=== PATIENT | female | born 1995 | race African-American/Black ===

== ENCOUNTER 2018-11-23 18:06 | Emergency (ER) | payer MEDICAID ==
[~2018-11-23] VITALS: Ht 162.6 cm; Wt 77.3 kg
[2018-11-23] MEDS ORDERED: METR-152 PO (20:10)
[2018-11-23] MEDS ORDERED: METR500 PO (20:13)
[2018-11-23 20:25] LABS: BASOPHILS % (AUTO) 0.6 % (0.0-2.0); EOSINOPHILS % (AUTO) 0.9 % (1.0-6.0); HEMATOCRIT 39.4 % (36-46); HEMOGLOBIN 13.1 g/dL (12.0-16.0); LYMPHOCYTES # (AUTO) 2.4 K/uL (1.0-4.8); MEAN CORPUSCULAR HEMOGLOBIN 28.9 pg (26.0-34.0); MEAN CORPUSCULAR HGB CONC 33.3 G/dL (31.0-37.0); MEAN CORPUSCULAR VOLUME 87 fL (80-100); MONOCYTES # (AUTO) 0.5 K/uL (0.1-1.0); MONOCYTES % (AUTO) 6.3 % (2.0-9.0); NEUTROPHILS % (AUTO) 62.2 % (40.0-70.0); PLATELET COUNT (AUTO) 262 K/uL (150-450); RED BLOOD CELL COUNT(AUTO) 4.53 MIL/uL (4.00-5.20); RED CELL DISTRIBUTION WIDTH 15.4 % (11.5-14.5)
[2018-11-23 20:38] LABS: APPEARANCE,URINE CLEAR (CLEAR); GLUCOSE, URINE (UA) NEGATIVE (NEGATIVE); KETONES,URINE 15 mg/dL (NEGATIVE); LEUKOCYTE ESTERASE ,URINE SMALL (NEGATIVE); NITRATE,URINE POSITIVE (NEGATIVE); OCCULT BLOOD,URINE NEGATIVE (NEGATIVE); PH,URINE 6.5 (5.0-8.0); PROTEIN,URINE NEGATIVE (NEGATIVE)
[2018-11-23 20:38] LABS: ANION GAP 11 mmol/L (8-16); CARBON DIOXIDE 24 mmol/L (22-29); CHLORIDE 108 mmol/L (98-107); GLOMERULAR FILTR. RATE CALC > 60 mL/min (>60); GLUCOSE,RANDOM 91 mg/dL (70-110); POTASSIUM 3.7 mmol/L (3.5-5.1); SODIUM SERUM 143 mmol/L (136-145); UREA NITROGEN, BLOOD 11 mg/dL (7-18)
[2018-11-23 20:42] LABS: AMPHET/METH SCREEN,URINE NEGATIVE (NEGATIVE); BARBITURATE SCREEN, URINE NEGATIVE (NEGATIVE); BENZODIAZEPINES SCREEN,URINE NEGATIVE (NEGATIVE); CANNABINOID SCREEN,URINE POSITIVE (NEGATIVE); COCAINE SCREEN,URINE NEGATIVE (NEGATIVE); METHADONE SCREEN, URINE NEGATIVE (NEGATIVE); OPIATE SCREEN,URINE NEGATIVE (NEGATIVE)
[2018-11-23 20:44] LABS: BILIRUBIN,URINE PRELIM. POSITIVE (NEGATIVE); PHENCYCLIDINE SCREEN,URINE NEGATIVE (NEGATIVE)
[2018-11-23 20:52] LABS: ALANINE AMINOTRANSFERASE 42 U/L (12-78); ALBUMIN 3.3 g/dL (3.4-5.0); ALKALINE PHOSPHATASE 69 U/L (46-116); ASPARTATE AMINOTRANSFERASE 39 U/L (15-37); BILIRUBIN,TOTAL 0.3 mg/dL (0.1-1.0); HCG,QUANTITATIVE < 1 mIU/mL (0-6); TOTAL PROTEIN, SERUM 6.7 g/dL (6.4-8.2)
[2018-11-23 21:05] LABS: RBC,URINE None Seen /HPF (0-2)
[2018-11-23 21:06] LABS: BACTERIA,URINE Few /HPF (None Seen); SQUAMOUS EPITHELIAL CELL,UR Rare /LPF (None Seen)
[2018-11-23 22:01] VITALS: BP 92/54
== END 2018-11-23 22:20 | disposition home or self-care (01) ==
LOC: EMS 18:08
DX: F29 Unspecified psychosis not due to a substance or known physiological condition (principal); F31.9 Bipolar disorder, unspecified; F20.9 Schizophrenia, unspecified; Z79.899 Other long term (current) drug therapy
CPT/HCPCS: 36415; 80053; 80307; 81001; 84702; 85025; 99283; G0480

== ENCOUNTER 2019-12-20 14:28 | Emergency (ER) | payer MEDICAID ==
[~2019-12-20] VITALS: Ht 162.6 cm; Wt 76.6 kg
[~2019-12-20 14:28] MED LIST: METR500 PO
[2019-12-20] MEDS ORDERED: HALO10 PO (16:19)
[2019-12-20] MEDS ORDERED: ARIP300S3 IM (16:19)
[2019-12-20 16:58] LABS: BASOPHILS % (AUTO) 0.3 % (0.0-2.0); EOSINOPHILS % (AUTO) 0.3 % (1.0-6.0); HEMATOCRIT 44.2 % (36-46); HEMOGLOBIN 14.8 g/dL (12.0-16.0); LYMPHOCYTES # (AUTO) 1.2 K/uL (1.0-4.8); LYMPHOCYTES % (AUTO) 11.9 % (22.0-44.0); MEAN CORPUSCULAR HEMOGLOBIN 29.7 pg (26.0-34.0); MEAN CORPUSCULAR HGB CONC 33.4 G/dL (31.0-37.0); MEAN CORPUSCULAR VOLUME 89 fL (80-100); MONOCYTES # (AUTO) 0.5 K/uL (0.1-1.0); NEUTROPHILS % (AUTO) 82.5 % (40.0-70.0); PLATELET COUNT (AUTO) 242 K/uL (150-450); RED BLOOD CELL COUNT(AUTO) 4.97 MIL/uL (4.00-5.20); RED CELL DISTRIBUTION WIDTH 13.9 % (11.5-14.5)
[2019-12-20 17:02] LABS: AMPHET/METH SCREEN,URINE NEGATIVE (NEGATIVE); BARBITURATE SCREEN, URINE NEGATIVE (NEGATIVE); BENZODIAZEPINES SCREEN,URINE NEGATIVE (NEGATIVE); CANNABINOID SCREEN,URINE POSITIVE (NEGATIVE); COCAINE SCREEN,URINE NEGATIVE (NEGATIVE); METHADONE SCREEN, URINE NEGATIVE (NEGATIVE); OPIATE SCREEN,URINE NEGATIVE (NEGATIVE)
[2019-12-20 17:03] LABS: PHENCYCLIDINE SCREEN,URINE NEGATIVE (NEGATIVE)
[2019-12-20 17:11] LABS: ANION GAP 9 mmol/L (8-16); CALCIUM, TOTAL 9.3 mg/dL (8.8-10.5); CARBON DIOXIDE 25 mmol/L (22-29); CHLORIDE 107 mmol/L (98-107); CREATININE 0.66 mg/dL (0.60-1.30); GLOMERULAR FILTR. RATE CALC > 60 mL/min (>60); GLUCOSE,RANDOM 80 mg/dL (70-110); POTASSIUM 3.8 mmol/L (3.5-5.1); SODIUM SERUM 141 mmol/L (136-145); UREA NITROGEN, BLOOD 8 mg/dL (7-18)
[2019-12-20 17:16] LABS: ALANINE AMINOTRANSFERASE 15 U/L (12-78); ALBUMIN 3.9 g/dL (3.4-5.0); ALKALINE PHOSPHATASE 68 U/L (46-116); ASPARTATE AMINOTRANSFERASE 15 U/L (15-37); BILIRUBIN,TOTAL 0.3 mg/dL (0.1-1.0); TOTAL PROTEIN, SERUM 7.9 g/dL (6.4-8.2)
[2019-12-20 18:15] VITALS: BP 111/69
== END 2019-12-20 18:15 | disposition home or self-care (01) ==
LOC: EMS 14:28
DX: F32.9 Major depressive disorder, single episode, unspecified (principal); F10.129 Alcohol abuse with intoxication, unspecified; F20.9 Schizophrenia, unspecified; Y90.4 Blood alcohol level of 80-99 mg/100 ml; Z79.899 Other long term (current) drug therapy
CPT/HCPCS: 36415; 80053; 80307; 85025; 99284; G0480

== ENCOUNTER 2020-09-06 16:47 | Inpatient (IN) | payer MEDICAID ==
[~2020-09-06 16:47] MED LIST changes: +ARIP300S3 IM; +HALO10 PO; -METR500 PO
[2020-09-06] MEDS ORDERED: DIVA-80 PO (17:35)
[2020-09-06] MEDS ORDERED: OLAN10TA3 PO (17:35)
[2020-09-06] MEDS ORDERED: HALOPERIDOL 5 MG TABLET PO PRN (20:45)
[2020-09-06] MEDS ORDERED: ZOLPIDEM TARTRATE 10 MG TABLET PO PRN (20:45)
[2020-09-06 21:38] VITALS: BP 118/52
[2020-09-06 22:07] VITALS: BP 118/52
[2020-09-07 00:44] VITALS: BP 111/62
[2020-09-07] MEDS ORDERED: INFLUENZA VIRUS VACCINE QVS 2020-21 (6MO+)/PF 60 MCG/0.5 ML SYRINGE IM ONE (01:15)
[2020-09-07] MEDS ORDERED: MAGNESIUM HYDROXIDE SUSPENSION 30 ML UDCUP PO PRN (07:45)
[2020-09-07] MEDS ORDERED: MAG HYDROX/AL HYDROX/SIMETH ES 30 ML SUSPENSION UDCUP PO PRN (07:45)
[2020-09-07] MEDS ORDERED: DOCUSATE SODIUM 100 MG CAPSULE PO PRN (07:45)
[2020-09-07] MEDS ORDERED: GuaiFENesin/D-METHORPHAN [SUGAR-FREE] 200-20MG/10 ML SYRUP UDCUP PO PRN (07:45)
[2020-09-07] MEDS ORDERED: ONDANSETRON HCL 4 MG TABLET PO PRN (07:45)
[2020-09-07] MEDS ORDERED: LOPERAMIDE HCL 2 MG CAPSULE PO PRN (07:45)
[2020-09-07] MEDS ORDERED: PETROLATUM,WHITE 28 GM JELLY TP PRN (07:45)
[2020-09-07] MEDS ORDERED: CloNIDine HCL 0.1 MG TABLET PO PRN (07:45)
[2020-09-07] MEDS ORDERED: NICOTINE 14 MG/24 HOUR PATCH TD PRN (07:45)
[2020-09-07] MEDS ORDERED: ALBUTEROL SULFATE HFA 90 MCG/PUFF 8 GM INHALER IH PRN (07:45)
[2020-09-07 08:22] VITALS: BP 119/65
[2020-09-07] MEDS: OLANZapine 10 MG TABLET PO SCH ×3 (09:00→17:00)
[2020-09-07] MEDS: DIVALPROEX SODIUM 500 MG DR TABLET PO SCH ×3 (09:00→17:00)
[2020-09-07] MEDS: HALOPERIDOL LACTATE 5 MG/ML VIAL IM PRN ×2 (14:42→17:55)
[2020-09-08 01:14] VITALS: BP 115/68
[2020-09-08 08:23] VITALS: BP 124/82
[2020-09-08] MEDS: DIVALPROEX SODIUM 500 MG DR TABLET PO SCH ×2 (08:32→16:10)
[2020-09-08] MEDS: OLANZapine 10 MG TABLET PO SCH ×2 (08:32→16:10)
[2020-09-08] MEDS: HALOPERIDOL LACTATE 5 MG/ML VIAL IM PRN (08:36)
[2020-09-08 16:09] VITALS: BP 122/70
[2020-09-09] MEDS: ACETAMINOPHEN 325 MG TABLET PO PRN ×2 (00:30→14:32)
[2020-09-09 06:21] VITALS: BP 124/77
[2020-09-09 08:36] VITALS: BP 122/74
[2020-09-09] MEDS: OLANZapine 10 MG TABLET PO SCH ×2 (09:13→16:12)
[2020-09-09] MEDS: DIVALPROEX SODIUM 500 MG DR TABLET PO SCH ×2 (09:14→16:12)
[2020-09-09] MEDS: NYSTATIN 15 GM POWDER BOTTLE TP SCH ×2 (09:15→16:12)
[2020-09-09 16:13] VITALS: BP 126/78
[2020-09-10 01:17] VITALS: BP 121/76
[2020-09-10 08:08] VITALS: BP 122/73
[2020-09-10] MEDS: OLANZapine 10 MG TABLET PO SCH ×2 (08:14→17:13)
[2020-09-10] MEDS: DIVALPROEX SODIUM 500 MG DR TABLET PO SCH ×2 (08:14→17:51)
[2020-09-10] MEDS: CEPHALEXIN MONOHYDRATE 500 MG CAPSULE PO SCH ×3 (09:12→17:13)
[2020-09-10] MEDS: NYSTATIN 15 GM POWDER BOTTLE TP SCH ×2 (09:13→17:14)
[2020-09-10 16:11] VITALS: BP 117/78
[2020-09-10] MEDS: LORazepam 2 MG TABLET PO PRN (17:13)
[2020-09-11 00:45] VITALS: BP 111/67
[2020-09-11] MEDS: ACETAMINOPHEN 325 MG TABLET PO PRN ×2 (03:11→18:25)
[2020-09-11] MEDS: IBUPROFEN 400 MG TABLET PO PRN (05:26)
[2020-09-11] MEDS: NYSTATIN 15 GM POWDER BOTTLE TP SCH ×2 (08:15→16:44)
[2020-09-11] MEDS: OLANZapine 10 MG TABLET PO SCH ×2 (08:15→16:40)
[2020-09-11] MEDS: CEPHALEXIN MONOHYDRATE 500 MG CAPSULE PO SCH ×3 (08:15→16:40)
[2020-09-11] MEDS: DIVALPROEX SODIUM 500 MG DR TABLET PO SCH ×2 (08:15→16:40)
[2020-09-11 08:27] VITALS: BP 118/72
[2020-09-11 09:02] LABS: APPEARANCE,URINE CLEAR (CLEAR); BILIRUBIN,URINE NEGATIVE (NEGATIVE); GLUCOSE, URINE (UA) NEGATIVE (NEGATIVE); KETONES,URINE NEGATIVE (NEGATIVE); LEUKOCYTE ESTERASE ,URINE NEGATIVE (NEGATIVE); NITRATE,URINE NEGATIVE (NEGATIVE); OCCULT BLOOD,URINE NEGATIVE (NEGATIVE); PH,URINE 7.5 (5.0-8.0); PROTEIN,URINE NEGATIVE (NEGATIVE); UROBILINOGEN,URINE 0.2 mg/dL (<=1.0)
[2020-09-11 09:08] LABS: AMPHET/METH SCREEN,URINE NEGATIVE (NEGATIVE); BARBITURATE SCREEN, URINE NEGATIVE (NEGATIVE); BENZODIAZEPINES SCREEN,URINE NEGATIVE (NEGATIVE); CANNABINOID SCREEN,URINE NEGATIVE (NEGATIVE); COCAINE SCREEN,URINE NEGATIVE (NEGATIVE); METHADONE SCREEN, URINE NEGATIVE (NEGATIVE); OPIATE SCREEN,URINE NEGATIVE (NEGATIVE)
[2020-09-11 09:09] LABS: PHENCYCLIDINE SCREEN,URINE NEGATIVE (NEGATIVE)
[2020-09-11 11:26] LABS: BACTERIA,URINE None Seen /HPF (None Seen); RBC,URINE None Seen /HPF (0-2); SQUAMOUS EPITHELIAL CELL,UR Rare /LPF (None Seen); WBC,URINE None Seen /HPF (0-5)
[2020-09-11 20:55] VITALS: BP 120/68
[2020-09-12 01:24] VITALS: BP 110/72
[2020-09-12] MEDS: IBUPROFEN 400 MG TABLET PO PRN ×2 (05:03→17:09)
[2020-09-12 07:48] LABS: BASOPHILS % (AUTO) 0.4 % (0.0-2.0); EOSINOPHILS % (AUTO) 2.1 % (1.0-6.0); HEMATOCRIT 40.2 % (36-46); HEMOGLOBIN 13.6 g/dL (12.0-16.0); LYMPHOCYTES # (AUTO) 1.6 K/uL (1.0-4.8); LYMPHOCYTES % (AUTO) 24.8 % (22.0-44.0); MEAN CORPUSCULAR HEMOGLOBIN 30.9 pg (26.0-34.0); MEAN CORPUSCULAR HGB CONC 33.8 G/dL (31.0-37.0); MEAN CORPUSCULAR VOLUME 91 fL (80-100); MONOCYTES # (AUTO) 0.6 K/uL (0.1-1.0); MONOCYTES % (AUTO) 8.8 % (2.0-9.0); NEUTROPHILS # (AUTO) 4.1 K/uL (1.8-7.7); NEUTROPHILS % (AUTO) 63.9 % (40.0-70.0); PLATELET COUNT (AUTO) 238 K/uL (150-450); RED CELL DISTRIBUTION WIDTH 13.6 % (11.5-14.5)
[2020-09-12 08:17] VITALS: BP 100/59
[2020-09-12] MEDS: LORazepam 2 MG TABLET PO PRN (08:49)
[2020-09-12] MEDS: DIVALPROEX SODIUM 500 MG DR TABLET PO SCH ×2 (08:49→16:10)
[2020-09-12] MEDS: OLANZapine 10 MG TABLET PO SCH ×2 (08:49→16:10)
[2020-09-12] MEDS: CEPHALEXIN MONOHYDRATE 500 MG CAPSULE PO SCH ×3 (08:49→16:10)
[2020-09-12] MEDS: NYSTATIN 15 GM POWDER BOTTLE TP SCH ×2 (08:49→16:10)
[2020-09-12 16:17] VITALS: BP 119/77
[2020-09-12 17:00] VITALS: BP 114/67
[2020-09-13 00:46] VITALS: BP 110/77
[2020-09-13] MEDS: OLANZapine 10 MG TABLET PO SCH ×2 (08:16→16:50)
[2020-09-13] MEDS: NYSTATIN 15 GM POWDER BOTTLE TP SCH ×2 (08:16→16:50)
[2020-09-13] MEDS: IBUPROFEN 400 MG TABLET PO PRN (08:17)
[2020-09-13] MEDS: DIVALPROEX SODIUM 500 MG DR TABLET PO SCH ×2 (08:17→16:50)
[2020-09-13] MEDS: CEPHALEXIN MONOHYDRATE 500 MG CAPSULE PO SCH ×3 (08:17→16:50)
[2020-09-13 08:42] VITALS: BP 116/75
[2020-09-13 16:06] VITALS: BP 118/75
[2020-09-13] MEDS: ACETAMINOPHEN 325 MG TABLET PO PRN (17:14)
[2020-09-13] MEDS: LORazepam 2 MG TABLET PO PRN (23:09)
[2020-09-14 01:08] VITALS: BP 116/72
[2020-09-14] MEDS: IBUPROFEN 400 MG TABLET PO PRN (05:21)
[2020-09-14 08:07] VITALS: BP 112/65
[2020-09-14] MEDS: OLANZapine 10 MG TABLET PO SCH (08:18)
[2020-09-14] MEDS: DIVALPROEX SODIUM 500 MG DR TABLET PO SCH (08:18)
[2020-09-14] MEDS: CEPHALEXIN MONOHYDRATE 500 MG CAPSULE PO SCH ×2 (08:19→12:59)
[2020-09-14] MEDS: NYSTATIN 15 GM POWDER BOTTLE TP SCH (08:19)
[2020-09-14] MEDS ORDERED: DIVA250T4 PO (11:08)
== END 2020-09-14 13:15 | disposition home or self-care (01) | DRG 750 ==
LOC: B3A 20:37
PROVIDERS: ADMIT Psychiatry & Neurology Child & Adolescent Psychiatry; ATTEND Psychiatry & Neurology Child & Adolescent Psychiatry
DX: F25.1 Schizoaffective disorder, depressive type (principal); F22 Delusional disorders; F17.200 Nicotine dependence, unspecified, uncomplicated; I95.9 Hypotension, unspecified
CPT/HCPCS: 80307; 87491; 87591; 90686; J1630

== ENCOUNTER 2022-05-25 10:31 | Inpatient (IN) | payer MEDICAID ==
[~2022-05-25] VITALS: Ht 160 cm; Wt 70.8 kg
[~2022-05-25 10:31] MED LIST changes: -ARIP300S3 IM; +DIVA250T4 PO; -HALO10 PO; +OLAN10TA74 PO
[2022-05-25 11:35] LABS: BASOPHILS % (AUTO) 0.3 % (0.0-2.0); EOSINOPHILS % (AUTO) 0 % (1.0-6.0); HEMATOCRIT 39.8 % (36-46); HEMOGLOBIN 13.4 g/dL (12.0-16.0); LYMPHOCYTES % (AUTO) 13.9 % (22.0-44.0); MEAN CORPUSCULAR HEMOGLOBIN 29.8 pg (26.0-34.0); MEAN CORPUSCULAR HGB CONC 33.7 G/dL (31.0-37.0); MEAN CORPUSCULAR VOLUME 88 fL (80-100); MONOCYTES # (AUTO) 0.5 K/uL (0.1-1.0); MONOCYTES % (AUTO) 6.6 % (2.0-9.0); NEUTROPHILS # (AUTO) 5.8 K/uL (1.8-7.7); NEUTROPHILS % (AUTO) 79.2 % (40.0-70.0); PLATELET COUNT (AUTO) 235 K/uL (150-450); RED BLOOD CELL COUNT(AUTO) 4.52 MIL/uL (4.00-5.20); RED CELL DISTRIBUTION WIDTH 13.5 % (11.5-14.5)
[2022-05-25] MEDS ORDERED: HALOPERIDOL 5 MG TABLET PO ONE (11:45)
[2022-05-25] MEDS ORDERED: DiphenhydrAMINE HCL 25 MG CAPSULE PO ONE (11:45)
[2022-05-25 11:59] LABS: ANION GAP 17 mmol/L (8-16); CALCIUM, TOTAL 9.6 mg/dL (8.8-10.5); CARBON DIOXIDE 21 mmol/L (22-29); CHLORIDE 100 mmol/L (98-107); CREATININE 0.61 mg/dL (0.60-1.30); GLUCOSE,RANDOM 54 mg/dL (70-110); POTASSIUM 3.7 mmol/L (3.5-5.1); SODIUM SERUM 138 mmol/L (136-145); UREA NITROGEN, BLOOD 6 mg/dL (7-18)
[2022-05-25 12:00] LABS: GLOMERULAR FILTR. RATE CALC > 60 mL/min (>60)
[2022-05-25 12:03] LABS: ALANINE AMINOTRANSFERASE 59 U/L (12-78); ALBUMIN 4.3 g/dL (3.4-5.0); ALKALINE PHOSPHATASE 66 U/L (46-116); ASPARTATE AMINOTRANSFERASE 50 U/L (15-37); BILIRUBIN,TOTAL 1.3 mg/dL (0.1-1.0); HCG,QUANTITATIVE < 1 mIU/mL (0-6); TOTAL PROTEIN, SERUM 8.1 g/dL (6.4-8.2); VALPROIC ACID < 3 mcg/mL (50-100)
[2022-05-25] MEDS ORDERED: DiphenhydrAMINE HCL 50 MG/ML VIAL ONE (12:09)
[2022-05-25] MEDS ORDERED: HALOPERIDOL LACTATE 5 MG/ML VIAL ONE (12:09)
[2022-05-25] MEDS ORDERED: DiphenhydrAMINE HCL 50 MG/ML VIAL IM ONE ×2 (12:15→18:15)
[2022-05-25] MEDS ORDERED: HALOPERIDOL LACTATE 5 MG/ML VIAL IM ONE ×2 (12:15→18:15)
[2022-05-25 12:39] LABS: COVID AG,FIA SOURCE NASOPHARYNGEAL
[2022-05-25 12:56] LABS: AMPHET/METH SCREEN,URINE NEGATIVE (NEGATIVE); BARBITURATE SCREEN, URINE NEGATIVE (NEGATIVE); BENZODIAZEPINES SCREEN,URINE NEGATIVE (NEGATIVE); CANNABINOID SCREEN,URINE NEGATIVE (NEGATIVE); COCAINE SCREEN,URINE NEGATIVE (NEGATIVE); METHADONE SCREEN, URINE NEGATIVE (NEGATIVE); OPIATE SCREEN,URINE NEGATIVE (NEGATIVE)
[2022-05-25 13:04] LABS: PHENCYCLIDINE SCREEN,URINE NEGATIVE (NEGATIVE)
[2022-05-25] MEDS ORDERED: HALOPERIDOL 5 MG TABLET PO PRN (14:00)
[2022-05-25] MEDS ORDERED: ZOLPIDEM TARTRATE 10 MG TABLET PO PRN (14:00)
[2022-05-25] MEDS ORDERED: LORazepam 2 MG TABLET PO PRN (14:00)
[2022-05-25] MEDS: ZIPRASIDONE MESYLATE 20 MG/VIAL IM ONE ×2 (15:38→17:12)
[2022-05-25] MEDS ORDERED: DIAZEPAM 5 MG/ML 2 ML SYRINGE ONE (18:12)
[2022-05-25] MEDS ORDERED: DIAZEPAM 5 MG/ML 2 ML SYRINGE IM ONE (18:15)
[2022-05-27] MEDS ORDERED: BACITRACIN 28 GM OINTMENT TP PRN (07:45)
[2022-05-27] MEDS ORDERED: ONDANSETRON HCL 4 MG TABLET PO PRN (07:45)
[2022-05-27] MEDS ORDERED: IBUPROFEN 600 MG TABLET PO PRN (07:45)
[2022-05-27] MEDS ORDERED: MAGNESIUM HYDROXIDE SUSPENSION 30 ML UDCUP PO PRN (07:45)
[2022-05-27] MEDS ORDERED: OMEPRAZOLE 20 MG CAPSULE PO PRN (07:45)
[2022-05-27] MEDS ORDERED: DOCUSATE SODIUM 100 MG CAPSULE PO PRN (07:45)
[2022-05-27] MEDS ORDERED: ACETAMINOPHEN 325 MG TABLET PO PRN (07:45)
[2022-05-27] MEDS ORDERED: ALBUTEROL SULFATE HFA 90 MCG/PUFF 8 GM INHALER IH PRN (07:45)
[2022-05-27] MEDS ORDERED: LOPERAMIDE HCL 2 MG CAPSULE PO PRN (07:45)
[2022-05-27] MEDS ORDERED: MAG HYDROX/AL HYDROX/SIMETH ES 30 ML SUSPENSION UDCUP PO PRN (07:45)
[2022-05-27] MEDS ORDERED: BENZOCAINE/MENTHOL LOZENGE PO PRN (07:45)
[2022-05-27] MEDS ORDERED: PETROLATUM,WHITE 28 GM JELLY TP PRN (07:45)
[2022-05-27] MEDS ORDERED: CloNIDine HCL 0.1 MG TABLET PO PRN (07:45)
[2022-05-27 12:27] VITALS: BP 131/69
[2022-05-27] MEDS: DIVALPROEX SODIUM 500 MG DR TABLET PO SCH (16:41)
[2022-05-27 20:29] VITALS: BP 123/69
[2022-05-27] MEDS: OLANZapine 7.5 MG TABLET PO SCH (20:29)
[2022-05-28 08:02] LABS: APPEARANCE,URINE CLEAR (CLEAR); BILIRUBIN,URINE NEGATIVE (NEGATIVE); GLUCOSE, URINE (UA) NEGATIVE (NEGATIVE); KETONES,URINE NEGATIVE (NEGATIVE); LEUKOCYTE ESTERASE ,URINE NEGATIVE (NEGATIVE); NITRATE,URINE NEGATIVE (NEGATIVE); OCCULT BLOOD,URINE NEGATIVE (NEGATIVE); PROTEIN,URINE NEGATIVE (NEGATIVE); SPECIFIC GRAVITIY, URINE 1.003 (1.003-1.030); UROBILINOGEN,URINE <=1.0 mg/dL (<=1.0)
[2022-05-28 08:08] LABS: AMPHET/METH SCREEN,URINE NEGATIVE (NEGATIVE); BARBITURATE SCREEN, URINE NEGATIVE (NEGATIVE); BENZODIAZEPINES SCREEN,URINE NEGATIVE (NEGATIVE); CANNABINOID SCREEN,URINE NEGATIVE (NEGATIVE); COCAINE SCREEN,URINE NEGATIVE (NEGATIVE); METHADONE SCREEN, URINE NEGATIVE (NEGATIVE); OPIATE SCREEN,URINE NEGATIVE (NEGATIVE)
[2022-05-28 08:09] LABS: PHENCYCLIDINE SCREEN,URINE NEGATIVE (NEGATIVE)
[2022-05-28 08:50] VITALS: BP 108/68
[2022-05-28] MEDS: DIVALPROEX SODIUM 500 MG DR TABLET PO SCH ×2 (09:39→17:07)
[2022-05-28] MEDS: OLANZapine 7.5 MG TABLET PO SCH (20:03)
[2022-05-28 20:27] VITALS: BP 122/69
[2022-05-29] MEDS: DIVALPROEX SODIUM 500 MG DR TABLET PO SCH (08:13)
[2022-05-29 08:35] VITALS: BP 106/67
[2022-05-29] MEDS ORDERED: OLAN7.5T22 PO ×2 (11:39→13:03)
[2022-05-29] MEDS ORDERED: DIVA250T4 PO (13:03)
== END 2022-05-29 14:45 | disposition home or self-care (01) | DRG 750 ==
LOC: EMS 10:32 → B2S 05-27 04:35
PROVIDERS: ADMIT Psychiatry & Neurology Psychiatry; ATTEND Psychiatry & Neurology Psychiatry
DX: F25.0 Schizoaffective disorder, bipolar type (principal); F41.9 Anxiety disorder, unspecified; G47.00 Insomnia, unspecified; Z20.822 Contact with and (suspected) exposure to COVID-19; K21.9 Gastro-esophageal reflux disease without esophagitis; Z79.899 Other long term (current) drug therapy; Z56.0 Unemployment, unspecified; Z78.1 Physical restraint status
CPT/HCPCS: 80053; 80164; 80307; 81003; 84702; 85025; 99291; G0480; J1200; J1630; J3486

== ENCOUNTER 2022-08-27 19:29 | Inpatient (IN) | payer MEDICAID ==
[~2022-08-27] VITALS: Ht 162.6 cm; Wt 71.7 kg
[~2022-08-27 19:29] MED LIST changes: -OLAN10TA74 PO; +OLAN7.5T22 PO
[2022-08-27 20:13] LABS: BASOPHILS % (AUTO) 0.4 % (0.0-2.0); EOSINOPHILS % (AUTO) 0.6 % (1.0-6.0); HEMATOCRIT 36.8 % (36-46); HEMOGLOBIN 12.3 g/dL (12.0-16.0); LYMPHOCYTES # (AUTO) 1.7 K/uL (1.0-4.8); LYMPHOCYTES % (AUTO) 25.9 % (22.0-44.0); MEAN CORPUSCULAR HEMOGLOBIN 31.2 pg (26.0-34.0); MEAN CORPUSCULAR HGB CONC 33.4 G/dL (31.0-37.0); MEAN CORPUSCULAR VOLUME 93 fL (80-100); MONOCYTES # (AUTO) 0.6 K/uL (0.1-1.0); MONOCYTES % (AUTO) 9.6 % (2.0-9.0); NEUTROPHILS # (AUTO) 4.1 K/uL (1.8-7.7); NEUTROPHILS % (AUTO) 63.5 % (40.0-70.0); PLATELET COUNT (AUTO) 177 K/uL (150-450); RED BLOOD CELL COUNT(AUTO) 3.94 MIL/uL (4.00-5.20); RED CELL DISTRIBUTION WIDTH 14.5 % (11.5-14.5)
[2022-08-27 20:21] LABS: ANION GAP 6 mmol/L (8-16); CARBON DIOXIDE 27 mmol/L (22-29); CHLORIDE 106 mmol/L (98-107); CREATININE 0.67 mg/dL (0.60-1.30); GLUCOSE,RANDOM 95 mg/dL (70-110); POTASSIUM 3.4 mmol/L (3.5-5.1); SODIUM SERUM 139 mmol/L (136-145); UREA NITROGEN, BLOOD 4 mg/dL (7-18)
[2022-08-27 20:22] LABS: AMPHET/METH SCREEN,URINE NEGATIVE (NEGATIVE); BARBITURATE SCREEN, URINE NEGATIVE (NEGATIVE); BENZODIAZEPINES SCREEN,URINE NEGATIVE (NEGATIVE); CANNABINOID SCREEN,URINE NEGATIVE (NEGATIVE); COCAINE SCREEN,URINE NEGATIVE (NEGATIVE); METHADONE SCREEN, URINE NEGATIVE (NEGATIVE); OPIATE SCREEN,URINE NEGATIVE (NEGATIVE)
[2022-08-27 20:23] LABS: GLOMERULAR FILTR. RATE CALC > 60 mL/min (>60)
[2022-08-27 20:25] LABS: PHENCYCLIDINE SCREEN,URINE NEGATIVE (NEGATIVE)
[2022-08-27 20:32] LABS: ALANINE AMINOTRANSFERASE 25 U/L (12-78); ALBUMIN 3.6 g/dL (3.4-5.0); ALKALINE PHOSPHATASE 41 U/L (46-116); ASPARTATE AMINOTRANSFERASE 18 U/L (15-37); BILIRUBIN,TOTAL 0.4 mg/dL (0.1-1.0); HCG,QUANTITATIVE < 1 mIU/mL (0-6); TOTAL PROTEIN, SERUM 6.7 g/dL (6.4-8.2)
[2022-08-27 20:33] LABS: ACETAMINOPHEN < 2 mcg/mL (10-30)
[2022-08-27 20:38] LABS: SALICYLATE 0.3 mg/dL (2.8-20.0)
[2022-08-27] MEDS ORDERED: ARIP2TAB27 PO (21:27)
[2022-08-27 21:35] LABS: COVID AG,FIA SOURCE NASOPHARYNGEAL
[2022-08-27] MEDS ORDERED: ZOLPIDEM TARTRATE 10 MG TABLET PO PRN (22:45)
[2022-08-27 22:50] LABS: APPEARANCE,URINE CLEAR (CLEAR); BILIRUBIN,URINE NEGATIVE (NEGATIVE); GLUCOSE, URINE (UA) NEGATIVE (NEGATIVE); KETONES,URINE NEGATIVE (NEGATIVE); LEUKOCYTE ESTERASE ,URINE NEGATIVE (NEGATIVE); NITRATE,URINE NEGATIVE (NEGATIVE); OCCULT BLOOD,URINE NEGATIVE (NEGATIVE); PROTEIN,URINE NEGATIVE (NEGATIVE); SPECIFIC GRAVITIY, URINE 1.004 (1.003-1.030); UROBILINOGEN,URINE <=1.0 mg/dL (<=1.0)
[2022-08-28 01:09] VITALS: BP 110/70
[2022-08-28 08:30] VITALS: BP 91/60
[2022-08-28] MEDS: ARIPiprazole 5 MG TABLET PO SCH (12:55)
[2022-08-28] MEDS ORDERED: FLUCONAZOLE 150 MG TABLET PO ONE (15:30)
[2022-08-28 15:59] LABS: APPEARANCE,URINE HAZY (CLEAR); BILIRUBIN,URINE NEGATIVE (NEGATIVE); GLUCOSE, URINE (UA) NEGATIVE (NEGATIVE); KETONES,URINE NEGATIVE (NEGATIVE); LEUKOCYTE ESTERASE ,URINE TRACE (NEGATIVE); NITRATE,URINE NEGATIVE (NEGATIVE); OCCULT BLOOD,URINE NEGATIVE (NEGATIVE); PH,URINE 7.5 (5.0-8.0); PROTEIN,URINE NEGATIVE (NEGATIVE); SPECIFIC GRAVITIY, URINE 1.021 (1.003-1.030); UROBILINOGEN,URINE <=1.0 mg/dL (<=1.0)
[2022-08-28 16:00] VITALS: BP 100/60
[2022-08-28] MEDS ORDERED: MAG HYDROX/AL HYDROX/SIMETH ES 30 ML SUSPENSION UDCUP PO PRN (16:00)
[2022-08-28] MEDS ORDERED: ONDANSETRON HCL 4 MG TABLET PO PRN (16:00)
[2022-08-28] MEDS ORDERED: ACETAMINOPHEN 325 MG TABLET PO PRN (16:00)
[2022-08-28] MEDS ORDERED: DOCUSATE SODIUM 100 MG CAPSULE PO PRN (16:00)
[2022-08-28] MEDS ORDERED: MAGNESIUM HYDROXIDE SUSPENSION 30 ML UDCUP PO PRN (16:00)
[2022-08-28] MEDS ORDERED: ALBUTEROL SULFATE HFA 90 MCG/PUFF 8 GM INHALER IH PRN (16:00)
[2022-08-28] MEDS ORDERED: NICOTINE 14 MG/24 HOUR PATCH TD PRN (16:00)
[2022-08-28] MEDS ORDERED: IBUPROFEN 400 MG TABLET PO PRN (16:00)
[2022-08-28] MEDS ORDERED: CloNIDine HCL 0.1 MG TABLET PO PRN (16:00)
[2022-08-28] MEDS ORDERED: PETROLATUM,WHITE 28 GM JELLY TP PRN (16:00)
[2022-08-28] MEDS ORDERED: LOPERAMIDE HCL 2 MG CAPSULE PO PRN (16:00)
[2022-08-28] MEDS ORDERED: GuaiFENesin/D-METHORPHAN [SUGAR-FREE] 200-20MG/10 ML SYRUP UDCUP PO PRN (16:00)
[2022-08-28] MEDS: DIVALPROEX SODIUM 500 MG DR TABLET PO SCH (16:42)
[2022-08-28 16:54] LABS: SQUAMOUS EPITHELIAL CELL,UR Few /LPF (None Seen)
[2022-08-28 16:57] LABS: BACTERIA,URINE Moderate /HPF (None Seen); RBC,URINE None Seen /HPF (0-2); WBC,URINE 0-2 /HPF (0-5)
[2022-08-28] MEDS: OLANZapine 7.5 MG TABLET PO SCH (21:09)
[2022-08-29 08:21] VITALS: BP 97/52
[2022-08-29] MEDS: DIVALPROEX SODIUM 500 MG DR TABLET PO SCH ×2 (08:31→16:23)
[2022-08-29] MEDS: ARIPiprazole 5 MG TABLET PO SCH (08:31)
[2022-08-29] MEDS: CEPHALEXIN MONOHYDRATE 250 MG CAPSULE PO SCH ×3 (08:32→16:23)
[2022-08-29 10:11] LABS: ANION GAP 5 mmol/L (8-16); CALCIUM, TOTAL 8.7 mg/dL (8.8-10.5); CARBON DIOXIDE 29 mmol/L (22-29); CHLORIDE 105 mmol/L (98-107); CREATININE 0.63 mg/dL (0.60-1.30); GLUCOSE,RANDOM 88 mg/dL (70-110); POTASSIUM 4.1 mmol/L (3.5-5.1); SODIUM SERUM 139 mmol/L (136-145); UREA NITROGEN, BLOOD 11 mg/dL (7-18)
[2022-08-29 10:13] LABS: GLOMERULAR FILTR. RATE CALC > 60 mL/min (>60)
[2022-08-29 16:03] VITALS: BP 102/61
[2022-08-29] MEDS: OLANZapine 7.5 MG TABLET PO SCH (20:39)
[2022-08-30] MEDS: CEPHALEXIN MONOHYDRATE 250 MG CAPSULE PO SCH ×3 (08:20→16:07)
[2022-08-30] MEDS: DIVALPROEX SODIUM 500 MG DR TABLET PO SCH ×2 (08:20→16:07)
[2022-08-30] MEDS: ARIPiprazole 5 MG TABLET PO SCH (08:21)
[2022-08-30] MEDS ORDERED: ARIP20TA21 PO (11:50)
[2022-08-30] MEDS ORDERED: DIVA-80 PO (11:50)
[2022-08-30 16:06] VITALS: BP 102/81
[2022-08-30] MEDS: OLANZapine 7.5 MG TABLET PO SCH (20:51)
[2022-08-31] MEDS: ARIPiprazole 5 MG TABLET PO SCH (08:30)
[2022-08-31] MEDS: CEPHALEXIN MONOHYDRATE 250 MG CAPSULE PO SCH ×3 (08:30→16:38)
[2022-08-31] MEDS: DIVALPROEX SODIUM 500 MG DR TABLET PO SCH ×2 (08:30→16:38)
[2022-08-31 08:50] VITALS: BP 117/64
[2022-08-31 16:05] VITALS: BP 117/62
[2022-08-31 16:06] VITALS: BP 117/62
[2022-08-31] MEDS: OLANZapine 7.5 MG TABLET PO SCH (20:23)
[2022-09-01 08:53] VITALS: BP 107/60
[2022-09-01] MEDS: ARIPiprazole 5 MG TABLET PO SCH (10:21)
[2022-09-01] MEDS: DIVALPROEX SODIUM 500 MG DR TABLET PO SCH ×2 (10:21→17:13)
[2022-09-01] MEDS: CEPHALEXIN MONOHYDRATE 250 MG CAPSULE PO SCH ×3 (10:21→17:13)
[2022-09-01 16:06] VITALS: BP 106/64
[2022-09-01] MEDS: HALOPERIDOL 5 MG TABLET PO PRN (17:48)
[2022-09-01] MEDS: LORazepam 2 MG TABLET PO PRN (17:48)
[2022-09-01] MEDS: OLANZapine 7.5 MG TABLET PO SCH (20:07)
[2022-09-02 08:30] VITALS: BP 108/65
[2022-09-02] MEDS: ARIPiprazole 5 MG TABLET PO SCH (08:43)
[2022-09-02] MEDS: CEPHALEXIN MONOHYDRATE 250 MG CAPSULE PO SCH ×3 (08:44→17:14)
[2022-09-02] MEDS: DIVALPROEX SODIUM 500 MG DR TABLET PO SCH ×2 (08:44→17:14)
[2022-09-02] MEDS: HALOPERIDOL 5 MG TABLET PO PRN (12:25)
[2022-09-02] MEDS: LORazepam 2 MG TABLET PO PRN (12:25)
[2022-09-02 16:34] VITALS: BP 90/62
[2022-09-02] MEDS: OLANZapine 7.5 MG TABLET PO SCH (20:20)
[2022-09-03 08:12] VITALS: BP 94/50
[2022-09-03] MEDS: ARIPiprazole 5 MG TABLET PO SCH (08:29)
[2022-09-03] MEDS: DIVALPROEX SODIUM 500 MG DR TABLET PO SCH (08:29)
[2022-09-03] MEDS ORDERED: DIVA-112 PO (16:35)
[2022-09-03] MEDS ORDERED: ARIP5TAB37 PO (16:35)
[2022-09-03] MEDS ORDERED: OLAN7.5T22 PO (16:35)
== END 2022-09-03 15:00 | disposition home or self-care (01) | DRG 750 ==
LOC: EMS 19:47 → 3EC 22:47
PROVIDERS: ADMIT Psychiatry & Neurology Child & Adolescent Psychiatry; ATTEND Psychiatry & Neurology Child & Adolescent Psychiatry
DX: F25.0 Schizoaffective disorder, bipolar type (principal); E87.6 Hypokalemia; Z20.822 Contact with and (suspected) exposure to COVID-19; G47.00 Insomnia, unspecified; K21.9 Gastro-esophageal reflux disease without esophagitis
CPT/HCPCS: 80048; 80053; 80164; 81001; 81003; 84702; 85025; 87081; 87086; 87186; 93005; 99285; G0480; G0481

== ENCOUNTER 2023-07-25 13:44 | Emergency (ER) | payer MEDICAID ==
[~2023-07-25 13:44] MED LIST changes: +ARIP20TA21 PO; +ARIP5TAB37 PO; +DIVA-112 PO; -DIVA250T4 PO; +DIVA500T53 PO
== END 2023-07-25 14:15 | disposition left against medical advice (07) ==
LOC: EMS 14:07
DX: Z53.21 Procedure and treatment not carried out due to patient leaving prior to being seen by health care provider (principal)